=== PATIENT | male | born 1955 | race Caucasian/White ===

== ENCOUNTER 2020-01-01 22:54 | Emergency (ER) | payer OTHER, SELFPAY ==
[2020-01-01 22:59] VITALS: BP 160/102; PULSE 84; RESP 18; TEMP 36.6; O2SAT 97
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
== END 2020-01-02 00:23 | disposition home or self-care (01) ==
PROVIDERS: Emergency Provider Physician Assistant
DX: S39.94XA Unspecified injury of external genitals, initial encounter (principal); Y04.2XXA Assault by strike against or bumped into by another person, initial encounter; Y92.239 Unspecified place in hospital as the place of occurrence of the external cause; Y99.0 Civilian activity done for income or pay
CPT/HCPCS: 12345; 76870; 99281; 99282

== ENCOUNTER → 2020-06-15 16:08 | Outpatient (BNVA) | payer OTHER, SELFPAY | PROVIDERS: Visit Provider Nurse Practitioner Family | DX: Z11.59 Encounter for screening for other viral diseases (principal) | CPT/HCPCS: 87635 ==

== ENCOUNTER → 2021-04-21 09:15 | Outpatient (BNVA) | payer OTHER, SELFPAY | PROVIDERS: PCP Family Medicine; Visit Provider Family Medicine | DX: I10 Essential (primary) hypertension (principal); J41.0 Simple chronic bronchitis; R73.03 Prediabetes; E78.2 Mixed hyperlipidemia; Z68.39 Body mass index [BMI] 39.0-39.9, adult | CPT/HCPCS: 80053 ==

== ENCOUNTER → 2022-02-17 10:02 | Outpatient (BNVA) | payer MEDICARE, SELFPAY | PROVIDERS: PCP Family Medicine; Visit Provider Family Medicine | DX: J44.9 Chronic obstructive pulmonary disease, unspecified (principal); I10 Essential (primary) hypertension; R73.03 Prediabetes; E78.2 Mixed hyperlipidemia; Z87.892 Personal history of anaphylaxis | CPT/HCPCS: 80053; 80061; 83036 ==

== ENCOUNTER → 2022-08-18 10:02 | Outpatient (BNVA) | payer MEDICARE, SELFPAY | PROVIDERS: PCP Family Medicine; Visit Provider Emergency Medicine | DX: M62.838 Other muscle spasm (principal); M25.511 Pain in right shoulder; R73.03 Prediabetes | CPT/HCPCS: 82962 ==

== ENCOUNTER → 2023-09-28 10:51 | Outpatient (BNVA) | payer MEDICARE, SELFPAY | PROVIDERS: PCP Family Medicine; Visit Provider Family Medicine | DX: I10 Essential (primary) hypertension (principal); G47.00 Insomnia, unspecified; R73.03 Prediabetes; E78.2 Mixed hyperlipidemia; Z87.892 Personal history of anaphylaxis; J41.0 Simple chronic bronchitis; G47.09 Other insomnia; Z68.33 Body mass index [BMI] 33.0-33.9, adult | CPT/HCPCS: 80053; 80061; 83036 ==

== ENCOUNTER → 2024-10-01 08:58 | Outpatient (BNVA) | payer MEDICARE, SELFPAY | PROVIDERS: PCP Family Medicine; Visit Provider Family Medicine | DX: I10 Essential (primary) hypertension (principal); Z87.892 Personal history of anaphylaxis; E78.2 Mixed hyperlipidemia; Z12.5 Encounter for screening for malignant neoplasm of prostate; R73.03 Prediabetes; N40.0 Benign prostatic hyperplasia without lower urinary tract symptoms; J41.0 Simple chronic bronchitis; F51.01 Primary insomnia; N40.1 Benign prostatic hyperplasia with lower urinary tract symptoms; R39.11 Hesitancy of micturition; Z68.31 Body mass index [BMI] 31.0-31.9, adult | CPT/HCPCS: 80053; 80061; 83036; G0103 ==

== ENCOUNTER → 2024-10-10 13:43 | Outpatient (BNVA) | payer MEDICARE, SELFPAY | PROVIDERS: PCP Family Medicine; Referring Provider Family Medicine; Visit Provider Family Medicine | DX: R39.11 Hesitancy of micturition (principal) | CPT/HCPCS: 81000; 87086 ==